=== PATIENT | female | born 1970 | race Hispanic/Latino ===

== ENCOUNTER 2020-03-18 12:22 | Outpatient (CLI) | payer OTHER ==
--- NOTE | 2020-03-18 13:27 | Vascular Lab Report ---
DUPLEX DOPPLER LOWER EXTREMITY VEINS, LEFT INDICATION: OTHER SPECIFIC SOFT TISSUE DISORDERS, PAIN IN LOWER LEGS. TECHNIQUE: Duplex doppler imaging was performed through the veins of the left lower extremity using venous compression and other maneuvers. COMPARISON: No relevant prior imaging study available. FINDINGS: Left Common femoral vein: Negative. Left Superficial femoral vein: Negative. Left Popliteal vein: Negative. Left Calf veins: Negative. Additional findings: None. IMPRESSION: No sonographic evidence for DVT in the left lower extremity. Signer Name: Christiano Thomson Jr, MD Signed: 03/18/2020 1:23 PM Workstation Name: [id number]
== END 2020-03-18 12:23 | disposition home or self-care (01) ==
LOC: VAS 12:22
PROVIDERS: ATTEND Podiatrist Foot & Ankle Surgery
DX: M79.662 Pain in left lower leg (principal); M79.89 Other specified soft tissue disorders